=== PATIENT | female | born 1985 | race Caucasian/White ===

== ENCOUNTER → 2025-01-28 | Outpatient (CLI) | payer OTHER ==
[~2025-01-28] MED LIST: COLA100C5 PO; MOTR200T44 PO; PERCOCET PO; PRENTAB40 PO; ZOFR4TAB16 PO
== END ==
LOC: M WUC 11:37
PROVIDERS: ATTEND Student in an Organized Health Care Education/Training Program
DX: M25.531 Pain in right wrist (principal)